=== PATIENT | male | born 1950 | race American Indian/Alaskan Native ===

== ENCOUNTER 2016-12-11 22:53 | Emergency (ER) | payer MEDICARE ==
[2016-12-12 00:49] LABS: Basophils % (Auto) 0.3 % (0.0-1.8); Hematocrit 40.8 % (35.5-45.6); Hemoglobin 13.4 gm/dl (11.8-15.2); Mean Corpuscular HGB Conc 33 % (32-34); Mean Corpuscular Hemoglobin 32 pg (28-32); Mean Corpuscular Volume 96 fl (84-94); Platelet Count 159 K/mm3 (140-440); Red Blood Count 4.24 M/mm3 (3.65-5.03); Red Cell Distribution Width 13.9 % (13.2-15.2)
[2016-12-12 01:06] LABS: Alanine Aminotransferase 24 units/L (7-56); Albumin 4.2 g/dL (3.9-5); Albumin/Globulin Ratio 1.4 %; Alkaline Phosphatase 63 units/L (35-129); Anion Gap 19 mmol/L; Bilirubin,Total 0.5 mg/dL (0.1-1.2); Blood Urea Nitrogen 12 mg/dL (9-20); Carbon Dioxide 24 mmol/L (22-30); Chloride 101.3 mmol/L (98-107); Glucose 122 mg/dL (75-100); Lipase 12 units/L (13-60); Potassium 4.1 mmol/L (3.6-5.0); Sodium 140 mmol/L (137-145); Total Protein 7.1 g/dL (6.3-8.2)
[2016-12-12] MEDS ORDERED: TYLENOL PO ONE (02:33)
--- NOTE | 2016-12-12 03:06 | Cat Scan Report ---
FINAL REPORT PROCEDURE: CT HEAD/BRAIN WO CON TECHNIQUE: Computerized tomography of the head was performed without contrast material. HISTORY: HEADACHE COMPARISON: No prior studies are available for comparison. FINDINGS: Skull and scalp: Normal. Paranasal sinuses: Normal. Ventricles and subarachnoid spaces: Normal. Cerebrum: No evidence of hemorrhage, acute infarction or mass. Mild atrophy.. Cerebellum and brainstem: No evidence of hemorrhage, acute infarction or mass. There is an old lacunar infarction the left zoe.. Vasculature: Normal. Comments: None. IMPRESSION: No evidence an acute intra cranial process. Minimal atrophy is noted. 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
[2016-12-12] MEDS ORDERED: NACL 0.9% 1000 ML 1,000 ML IV ONE (04:43)
[2016-12-12] MEDS ORDERED: ZOFRAN IV ONE (04:43)
--- NOTE | 2016-12-12 06:28 | Emergency Department Report ---
ED General Adult HPI - General Chief complaint: Headache Stated complaint: EMESIS/DIZZINESS Time Seen by Provider: 12/12/16 04:43 Source: patient Mode of arrival: Wheelchair Limitations: No Limitations - History of Present Illness Initial comments: 66-year-old male presents to the emergency department complaining of the acute onset of right-sided neck and head pain. Patient describes a dull, aching pain that began at 11 AM yesterday. He reports associated dizziness and nausea with vomiting. Patient also states he was having difficulty keeping his right eye open. There has been no loss of consciousness. Prior to my interview of the patient, he received IV Zofran, and reports feeling "100% better". There are no other complaints. -: Sudden, days(s) (1) Time: 11:00 Location: head, neck Radiation: non-radiation Severity scale (0 -10): 7 Quality: aching, dull Consistency: constant, now resolved Improves with: none Worsens with: none Associated Symptoms: nausea/vomiting Treatments Prior to Arrival: none - Related Data Previous Rx's Medication Instructions Recorded Last Taken Type Butalb/Acetamin/Caff 50-325-40 1 each PO Q4H PRN #20 tablet 12/12/16 Unknown Rx [Fioricet] Allergies Allergy/AdvReac Type Severity Reaction Status Date / Time No Known Allergies Allergy Verified 12/12/16 00:06 ED Review of Systems ROS: Stated complaint: EMESIS/DIZZINESS Other details as noted in HPI Comment: All other systems reviewed and negative Eyes: as per HPI Gastrointestinal: nausea, vomiting Neurological: headache, vertigo ED Past Medical Hx - Past Medical History Previous Medical History?: Yes Hx Hypertension: Yes Hx Diabetes: Yes - Surgical History Past Surgical History?: Yes Additional Surgical History: BACK / HERNIA REPAIR - Family History Family history: no significant - Social History Smoking Status: Never Smoker Substance Use Type: Alcohol - Medications Home Medications: Home Medications Medication Instructions Recorded Confirmed Last Taken Type Butalb/Acetamin/Caff 50-325-40 1 each PO Q4H PRN #20 tablet 12/12/16 Unknown Rx [Fioricet] ED Physical Exam - General Limitations: No Limitations General appearance: alert, in no apparent distress - Head Head exam: Present: atraumatic, normocephalic - Eye Eye exam: Present: PERRL, EOMI, other (right eyelid drooping) - ENT ENT exam: Present: normal exam, normal orophraynx, mucous membranes moist - Neck Neck exam: Present: normal inspection, full ROM. Absent: tenderness - Respiratory Respiratory exam: Present: normal lung sounds bilaterally. Absent: respiratory distress - Cardiovascular Cardiovascular Exam: Present: regular rate, normal rhythm, normal heart sounds - GI/Abdominal GI/Abdominal exam: Present: soft, normal bowel sounds. Absent: distended, tenderness - Extremities Exam Extremities exam: Present: normal inspection, full ROM. Absent: tenderness - Back Exam Back exam: Present: normal inspection, full ROM. Absent: tenderness - Neurological Exam Neurological exam: Present: alert, oriented X3. Absent: motor sensory deficit - Skin Skin exam: Present: warm, dry, intact ED Course Vital Signs 12/12/16 12/12/16 12/12/16 00:06 03:41 06:48 Temperature 97.4 F L 97.4 F L Pulse Rate 73 82 Respiratory 16 18 20 Rate Blood Pressure 147/86 151/78 Blood Pressure [Left] O2 Sat by Pulse 99 100 100 Oximetry 12/12/16 12/12/16 07:40 09:00 Temperature 99.1 F 98.6 F Pulse Rate 82 75 Respiratory 18 16 Rate Blood Pressure Blood Pressure 148/82 144/85 [Left] O2 Sat by Pulse 100 100 Oximetry ED Medical Decision Making - Lab Data Result diagrams: 12/12/16 00:29 12/12/16 00:29 - Radiology Data Radiology results: report reviewed CT of the head shows no acute intracranial process. CTA of the neck shows no evidence of carotid dissection or any other acute vascular abnormality. - Medical Decision Making Lab and imaging results reviewed and discussed with the patient. Patient continues to remain symptom-free in the emergency department. He'll be discharged home at this time. - Differential Diagnosis tension headache, migraine headache, carotid dissection Critical care attestation.: If time is entered above; I have spent that time in minutes in the direct care of this critically ill patient, excluding procedure time. ED Disposition Clinical Impression: Headache, acute Qualifiers: Headache type: tension-type Intractability: not intractable Qualified Code(s): G44.209 - Tension-type headache, unspecified, not intractable Disposition: DISCHARGED TO HOME OR SELFCARE Is pt being admited?: No Condition: Stable Instructions: Acute Headache (ED) Prescriptions: Butalb/Acetamin/Caff 50-325-40 [Fioricet] 1 each PO Q4H PRN #20 tablet PRN Reason: Headache Referrals: PRIMARY CARE, [Primary Care Provider] - 3-5 Days Time of Disposition: 09:18
[2016-12-12 06:54] LABS: Bilirubin,Urine NEG (Negative); Blood,Urine NEG (Negative); Ketones,Urine TR mg/dL (Negative); Leukocyte Esterase,Urine NEG (Negative); Mucus,Urine FEW /HPF; Nitrite,Urine NEG (Negative); Protein,Urine <15 mg/dL mg/dL (Negative); Urobilinogen,Urine < 2.0 mg/dL (<2.0)
[2016-12-12] MEDS ORDERED: TYLENOL ONE (07:41)
[2016-12-12] MEDS ORDERED: NACL ONE (08:04)
--- NOTE | 2016-12-12 09:06 | Cat Scan Report ---
CTA NECK: HISTORY: Acute right neck pain, headaches, Mercy's syndrome. TECHNIQUE: Helical CT following IV contrast. Sagittal and coronal reformatted images. 3D volume rendering technique. Stenosis was calculated using NASCET criteria. FINDINGS: The visualized aortic arch, innominate artery and proximal bilateral subclavian arteries are widely patent with less than 20% stenosis.. The right carotid system is widely patent with less than 20% stenosis. Minimal partially calcified plaque is noted in the right carotid bulb. Within the left carotid system, there is moderate partially calcified plaque in the proximal left ICA with stenosis measuring 48%. The remainder of the left carotid system is widely patent. The vertebrobasilar system is widely patent with less than 20% stenosis. Soft tissue structures of the neck are unremarkable. There is mild multilevel cervical spondylosis. No evidence for neck mass, fluid collection or inflammatory changes. The lung apices are clear. IMPRESSION: No hemodynamically significant stenosis is appreciated in the neck. 40% stenosis in the proximal left ICA. No clear explanation for acute right neck pain.
[2016-12-12 09:16] VITALS: BP 144/85
== END 2016-12-12 09:24 | disposition home or self-care (01) ==
LOC: ED 22:53
DX: G44.209 Tension-type headache, unspecified, not intractable (principal); I10 Essential (primary) hypertension; E11.9 Type 2 diabetes mellitus without complications
CPT/HCPCS: 36415; 70450; 70498; 80053; 81001; 82962; 83690; 85025; 96361; 96374; 99284; J2405; J7030; Q9967

== ENCOUNTER 2020-09-24 12:19 | Emergency (ER) | payer MEDICARE ==
[2020-09-24 12:28] VITALS: BP 151/69
[2020-09-24] MEDS ORDERED: IBUPROFEN 600 MG TAB PO ONE (12:30)
[2020-09-24] MEDS ORDERED: RABIES IMMUNE GLOBULIN P/F 300 UNIT/ML INJ 5 ML IM ONE (12:30)
[2020-09-24] MEDS ORDERED: DIPHtheria,PERTUSSIS(ACELL),TETANUS VACCINE/PF 0.5 ML VIAL IM ONE (12:30)
[2020-09-24] MEDS ORDERED: RABIES VACCINE, HUMAN DIPLOID/PF 2.5 UNIT/ML VIAL IM ONE (12:30)
[2020-09-24] MEDS ORDERED: ONDANSETRON 4 MG ODT TAB PO ONE (12:33)
--- NOTE | 2020-09-24 12:33 | Emergency Department Report ---
ED Animal Bite HPI - General Chief Complaint: Animal Bite Stated Complaint: RAT BITE Time Seen by Provider: 09/24/20 12:28 Source: patient Mode of arrival: Ambulatory Limitations: Physical Limitation - History of Present Illness Initial Comments: 70-year-old -[place] male with a past medical history of hypertension and diabetes presents to the emergency room stating a rapid him on his left foot approximately 4 30-5 30 this morning while at home. Patient reports that he has not up-to-date on his tetanus shot. Patient reports that the pain is about a 6- 7 out of 10. Patient did not fall and did not hit his head. Patient reports his nausea at this time and now has a headache. MD Complaint: animal bite -: This morning Time: 05:30 Left: Foot Animal: rodent Description: wild animal Mechanism: bite Severity scale (0 -10): 6 Context: unprovoked Associated Symptoms: headache, other (Nausea) - Related Data Patient Tetanus UTD: No Previous Rx's Medication Instructions Recorded Last Taken Type Butalb/Acetamin/Caff 50-325-40 1 each PO Q4H PRN #20 tablet 12/12/16 Unknown Rx [Fioricet] Amoxicillin/K Clav Tab [Augmentin 1 tab PO Q12HR 10 Days #20 tab 09/24/20 Unknown Rx 875 mg] Allergies Allergy/AdvReac Type Severity Reaction Status Date / Time No Known Allergies Allergy Verified 12/12/16 00:06 ED Review of Systems ROS: Stated complaint: RAT BITE Other details as noted in HPI Comment: All other systems reviewed and negative ED Past Medical Hx - Past Medical History Previous Medical History?: Yes Hx Hypertension: Yes Hx Diabetes: Yes - Surgical History Past Surgical History?: Yes Additional Surgical History: BACK / HERNIA REPAIR - Social History Smoking Status: Never Smoker Substance Use Type: Alcohol - Medications Home Medications: Home Medications Medication Instructions Recorded Confirmed Last Taken Type Butalb/Acetamin/Caff 50-325-40 1 each PO Q4H PRN #20 tablet 12/12/16 Unknown Rx [Fioricet] Amoxicillin/K Clav Tab [Augmentin 1 tab PO Q12HR 10 Days #20 tab 09/24/20 Unknown Rx 875 mg] ED Physical Exam - General Limitations: Physical Limitation General appearance: alert, in no apparent distress - Head Head exam: Present: atraumatic, normocephalic - Eye Eye exam: Present: normal appearance - ENT ENT exam: Present: mucous membranes moist - Neck Neck exam: Present: full ROM - Respiratory Respiratory exam: Absent: accessory muscle use - Expanded Lower Extremity Exam Left Hip exam: Present: full ROM Upper Leg exam: Present: normal inspection Knee exam: Present: normal inspection Lower Leg exam: Present: normal inspection Ankle exam: Present: normal inspection Foot/Toe exam: Present: tenderness (Great toe), abrasion (Great toe), erythema (Great toe), puncture wound (Right toe) - Neurological Exam Neurological exam: Present: alert, oriented X3, normal gait - Psychiatric Psychiatric exam: Present: normal affect, normal mood - Expanded Skin Exam Expanded Type of lesion: Present: bite/sting Distribution of rash: LLE (Foot) Description of rash: Present: tenderness, erythematous ED Course Vital Signs 09/24/20 12:27 Temperature 97.9 F Pulse Rate 93 H Respiratory 20 Rate Blood Pressure 151/69 [Right] O2 Sat by Pulse 97 Oximetry Critical care attestation.: If time is entered above; I have spent that time in minutes in the direct care of this critically ill patient, excluding procedure time. ED Disposition Clinical Impression: Bitten by other rodent, initial encounter Disposition: DC-01 TO HOME OR SELFCARE Is pt being admited?: No Does the pt Need Aspirin: No Condition: Stable Instructions: Animal Bite, Adult, [id number] Additional Instructions: Please complete your antibiotics as prescribed. You must follow-up at the [facility] to receive your next 3 doses of rabies vaccine which should start in 3 days from today and then 7 days from today and then 14 days from today. You can take Tylenol or ibuprofen for pain. You need to return to the nearest emergency room if you start having any shortness of breath swelling of her tongue difficulty swallowing a rash. Prescriptions: Amoxicillin/K Clav Tab [Augmentin 875 mg] 1 tab PO Q12HR 10 Days #20 tab Referrals: PRIMARY CARE, [Primary Care Provider] - 3-5 Days [place] [Other] - 3-5 Days ED Medical Decision Making - Radiology Data Radiology results: report reviewed Patient: MARTIN SANDOVAL MR#: [id number] : 1950 Acct:[id number] Age/Sex: 70 / M ADM Date: 09/24/20 Loc: ED Attending Dr: Ordering Physician: BOYD DURAN Date of Service: 09/24/20 Procedure(s): XR foot 3+V LT Accession Number(s): [id number] cc: BOYD DURAN Fluoro Time In Minutes: LEFT FOOT 3 VIEW(S) INDICATION / CLINICAL INFORMATION: Animal bite to left foot(rat) COMPARISON: None available. FINDINGS: BONES / JOINT(S): No acute fracture or subluxation. Moderate degenerative change at the great toe MTP joint. SOFT TISSUES: No significant abnormality. No radiopaque foreign object. ADDITIONAL FINDINGS: None. Signer Name: Juan Pablo Head MD Signed: 09/24/2020 12:56 PM Workstation Name: [id number] Transcribed By: SINDY Dictated By: JUAN PABLO HEAD Electronically Authenticated By: JUAN PABLO HEAD Signed Date/Time: 09/24/20 1256 DD/ 1255 TD/TT: - Medical Decision Making 70-year-old -[place] male with a past medical history of hypertension and diabetes presents to the emergency room stating a rapid him on his left foot approximately 4 30-5 30 this morning while at home. Patient reports that he has not up-to-date on his tetanus shot. Patient reports that the pain is about a 6-7 out of 10. Patient did not fall and did not hit his head. Patient reports his nausea at this time and now has a headache. Patient was given ibuprofen for pain management. Patient was given Zofran for nausea. X-ray of left foot shows no acute abnormalities. Patient was given rabies vaccine in the left deltoid right deltoid was given Adacel rabies immunoglobulin to mL given around the site of injury and the remaining given to the right deltoid with the total of 1140 international units for the rabies immunoglobulin. Patient was given a handout when purple that shows where he can get the remaining rabies vaccine for day #3 then day #7 and then day #14. Patient will be placed on Augmentin 875 p.o. twice daily for 10 days. Patient can take [id number] Tylenol or ibuprofen for pain management. Patient is to return to the emergency room immediately if there is any signs of reaction from the vaccines such as shortness of breath swelling difficulty swallowing.
--- NOTE | 2020-09-24 13:01 | XRay Report ---
LEFT FOOT 3 VIEW(S) INDICATION / CLINICAL INFORMATION: Animal bite to left foot(rat) COMPARISON: None available. FINDINGS: BONES / JOINT(S): No acute fracture or subluxation. Moderate degenerative change at the great toe MTP joint. SOFT TISSUES: No significant abnormality. No radiopaque foreign object. ADDITIONAL FINDINGS: None. Signer Name: Jn Head MD Signed: 09/24/2020 12:56 PM Workstation Name: [id number]
== END 2020-09-24 13:59 | disposition home or self-care (01) ==
LOC: ED 12:19
DX: S91.352A Open bite, left foot, initial encounter (principal); I10 Essential (primary) hypertension; E11.9 Type 2 diabetes mellitus without complications; Z79.899 Other long term (current) drug therapy; W64.XXXA Exposure to other animate mechanical forces, initial encounter; Y93.89 Activity, other specified; Y92.89 Other specified places as the place of occurrence of the external cause; Y99.8 Other external cause status
CPT/HCPCS: 90375; 90471; 90472; 90675; 90715; 96372; 99283; Q0162